=== PATIENT | male | born 1950 | race African-American/Black ===

== ENCOUNTER 2018-12-14 16:15 | Emergency (ER) | payer MEDICARE, MEDICAID, OTHER ==
[~2018-12-14] VITALS: Ht 170.2 cm; Wt 71.0 kg
[2018-12-14 16:56] LABS: BASOPHILS % 0.4 % (0.0-2.0); EOSINOPHILS % 2.1 % (0.0-5.0); HEMATOCRIT. 41.1 % (42.0-52.0); HEMOGLOBIN. 13.9 g/dL (14.0-18.0); LYMPHOCYTES % 30.6 % (20.0-50.0); MEAN CORPUSCULAR HEMOGLOBIN 29.7 pg (28.0-32.0); MEAN CORPUSCULAR VOLUME 87.7 fL (80.0-94.0); MEAN PLATELET VOLUME 9.8 fl (7.4-10.4); MONOCYTES % 12.6 % (2.0-8.0); NEUTROPHILS % 54.3 % (40.0-76.0); PLATELET 148 x1000/uL (130-400); RED BLOOD CELL COUNT 4.69 mill/uL (4.7-6.1); RED CELL DISTRIBUTION WIDTH 14.9 % (11.6-14.6)
[2018-12-14 16:59] LABS: CHLORIDE 109 mEq/L (98-107); INR 2.3; PROTHROMBIN TIME 22.7 sec (9.6-11.0)
[2018-12-14 18:35] VITALS: BP 177/97
== END 2018-12-14 18:45 | disposition home or self-care (01) ==
LOC: ER 16:15 → CANBEDREQ 18:42 → ER 18:45
DX: R42 Dizziness and giddiness (principal); R55 Syncope and collapse; I16.0 Hypertensive urgency; I10 Essential (primary) hypertension; I48.91 Unspecified atrial fibrillation; Z86.73 Personal history of transient ischemic attack (TIA), and cerebral infarction without residual deficits; R53.1 Weakness
CPT/HCPCS: 36415; 71045; 83880; 84484; 93005; 99284

== ENCOUNTER 2022-05-30 08:07 | Emergency (ER) | payer BC, MEDICAID, MEDICARE, OTHER ==
[~2022-05-30] VITALS: Ht 190.5 cm; Wt 97.0 kg
[2022-05-30 08:15] VITALS: BP 176/88
== END 2022-05-30 12:11 | disposition home or self-care (01) ==
LOC: ER 08:22
DX: R20.2 Paresthesia of skin (principal); I48.91 Unspecified atrial fibrillation; I10 Essential (primary) hypertension; Z86.73 Personal history of transient ischemic attack (TIA), and cerebral infarction without residual deficits
CPT/HCPCS: 93005; 93922; 93971; 99284